=== PATIENT | male | born 1945 | race Caucasian/White ===

== ENCOUNTER 2022-03-06 12:47 | Emergency (ER) | payer OTHER ==
[2022-03-06] MEDS ORDERED: Sodium Chloride 0.9% 2.5 ML Syringe FLUSH PRN (13:17)
[2022-03-06] MEDS ORDERED: Sodium Chloride 0.9% 10 ML Syringe FLUSH PRN (13:17)
[2022-03-06 14:26] LABS: CARBON DIOXIDE,CO2 27.1 mmol/L (21.0-32.0); POTASSIUM,K 3.9 mmol/L (3.5-5.1)
[2022-03-06 14:30] LABS: CORONAVIRUS COVID-19 NAA POSITIVE (NEGATIVE); INFLUENZA A NAA NEGATIVE (NEGATIVE); INFLUENZA B NAA NEGATIVE (NEGATIVE)
== END 2022-03-06 15:34 | disposition home or self-care (01) ==
LOC: MW.ED 12:47
DX: U07.1 COVID-19 (principal)
CPT/HCPCS: 0240U; 36415; 71046; 80053; 84484; 85025; 93005; 99285

== ENCOUNTER 2022-03-12 15:27 | Emergency (ER) | payer OTHER ==
[2022-03-12] MEDS ORDERED: Acetaminophen/HYDROcodone 325-5 MG Tab PO ONE (15:45)
[2022-03-12 16:21] LABS: POTASSIUM,K 4.1 mmol/L (3.5-5.1)
[2022-03-12] MEDS ORDERED: Iopamidol 755 MG/ML 500 ML Multipack Bottle IVPUSH STA (17:52)
== END 2022-03-12 19:03 | disposition home or self-care (01) ==
LOC: MW.ED 15:27
DX: U07.1 COVID-19 (principal); I45.10 Unspecified right bundle-branch block
CPT/HCPCS: 36415; 71045; 71275; 80053; 83605; 83735; 83880; 84484; 85025; 85610; 85730; 86140; 87040; 93005; 99285; A9270; Q9967